=== PATIENT | female | born 1940 | race Caucasian/White ===

== ENCOUNTER → 2021-03-08 08:30 | Outpatient (CLI) | payer MEDICARE, SELFPAY ==
--- NOTE | ~2021-03-08 | CT_ITS ---
EXAMINATION: CT abdomen pelvis w con EXAM DATE: 03/08/2021 09:08 INDICATION: RLQ abdominal swelling, mass and lump. TECHNIQUE: Spiral CT of the abdomen and pelvis was performed following intravenous injection of 100 m L Omnipaque 350. Axial, coronal and sagittal images of the abdomen and pelvis were reviewed. The do se-length product (DLP) for this examination was 357.67 mGy-cm. The exposure was tailored according to patient size (auto mA exposure control), and iterative reconstruction (ASIR) was used as additiona l dose reduction technique. There is no prior study for comparison. FINDINGS: The liver, spleen, adrenal glands and pancreas are unremarkable. Gallbladder is unremarkab le. No biliary obstruction. Portal and splenic veins are patent. Kidneys enhance symmetrically. T here is no hydronephrosis. There is a 3 cm right renal cyst. Focal hypodense region in the uterus me asuring 3.7 cm appears to be in the anterior myometrium displacing the endometrium anteriorly, making this most likely fibroid. The bladder is unremarkable. There is no retroperitoneal or pelvic lymph adenopathy. There is mild scattered arteriosclerotic disease. The appendix is normal. The stomach and small bowel are unremarkable. There is moderate scattered co lonic diverticulosis. There is no adjacent inflammatory change to suggest diverticulitis. No free i ntraperitoneal gas. The heart is normal in size. There are no pericardial or pleural effusions. T he lung bases are unremarkable. There are no osteoblastic or osteolytic lesions identified. Mild lum bar levoscoliosis. IMPRESSION: Uterine mass appears to displace endometrium, probably fibroid. Moderate colonic divertic ulosis. Reviewed, dictated and finalized at location B. IMPRESSION: Uterine mass appears to displace endometrium, probably fibroid. Mod erate colonic diverticulosis.
[2021-03-08 08:55] LABS: Estimated Glomerular Filt Rate > 60
== END ==
PROVIDERS: PCP Family Medicine; Visit Provider Family Medicine
DX: R10.30 Lower abdominal pain, unspecified (principal); N28.1 Cyst of kidney, acquired
CPT/HCPCS: 74177; Q9967

== ENCOUNTER 2021-09-25 13:21 | Outpatient (CLI) | payer MEDICARE, SELFPAY ==
--- NOTE | ~2021-09-25 | XR_ITS ---
EXAM: XR hand RT min 3V HISTORY: Pain in right hand . COMPARISON: None available. FINDINGS: Severely decreased mineralization. No fracture or dislocation. No lytic or blastic lesion. Erosive joint space narrowing in the interphalangeal joint of the thumb and the DIPs, most severe at the thumb index and middle fingers. Other scattered mild nonerosive degenerative change. No perioste al change. IMPRESSION: No acute finding in the right hand. Erosive osteoarthritis. Reviewed, dictated and finalized at location K.
== END 2021-09-25 13:22 | disposition home or self-care (01) ==
PROVIDERS: PCP Family Medicine; Visit Provider Orthopaedic Surgery
DX: M15.4 Erosive (osteo)arthritis (principal)
CPT/HCPCS: 73130

== ENCOUNTER 2021-10-09 08:44 | Emergency (ER) | payer MEDICARE, SELFPAY ==
--- NOTE | ~2021-10-09 | CT_ITS ---
EXAMINATION: CT cervical spine wo con DATE: 10/09/2021 09:09 INDICATION: Neck pain and stiffness for 3 days. History of spinal stenosis, surgical spinal fusion TECHNIQUE: Computed tomography (CT) of the cervical spine was performed without intravenous contrast. Automated exposure control and iterative reconstruction technique were employed. Exam dose: 174.00 mGy-cm total exam DLP. COMPARISON: None FINDINGS: There is reversal cervical curvature. There is 2 mm anterolisthesis at C3-4 and 1.6 mm anterolisthesis at C4-5. Status post anterior cervical spine surgical fusion at C5-6. Moderately severe degenerative disc disease at C6-7 and severe degenerative disc disease at C7-T1. There is disc disease and minimal anterolisthesis at T2-3. There is prominent degenerative change of the apophyseal joints, particularly in the upper and mid ce rvical spine. There is prominent uncovertebral joint spurring at C6-7 and C7-T1. C1 and C2 are normally aligned and the odontoid process is intact. No fracture or dislocation or lock ed facet or prevertebral soft tissue swelling is detected. IMPRESSION: Reversal of cervical curvature Status post surgical fusion at C5-C6 2 mm anterolisthesis at C3-4 1.6 mm anterolisthesis at C4-5 Minimal anterolisthesis at T2-3 Moderately severe degenerative disc disease at C6-7 and severe degenerative disc disease at C7-T1 Prominent uncovertebral joint spurring at C6-7 and C7-T1 Reviewed, dictated and finalized at Location A. Reviewed, dictated and finalized at location A. IMPRESSION: Reversal of cervical curvature Status post surgical fusion at C5-C6 2 mm anterolisthesis at C3-4 1.6 mm anterolisthesis at C4-5 Minimal anterolisthesis at T2-3 Moderately severe degenerative disc disease at C6-7 and severe degenerative dis c disease at C7-T1 Prominent uncovertebral joint spurring at C6-7 and C7-T1
[2021-10-09 08:48] VITALS: BP 182/81; PULSE 92; RESP 18; TEMP 36.9; O2SAT 98
--- NOTE | 2021-10-09 09:37 | ED.NECK ---
HPI - Neck Pain/Injury General Chief Complaint: Neck Pain/Injury Stated Complaint: neck pain Time Seen by Provider: 10/09/21 08:52 History of Present Illness HPI Narrative: 80-year-old female with history of cervical spine issues and surgery presents here after she woke up 3 days ago with a stiff neck, she states that it was mostly worse on the left side, but now is kind of in the center, her when she tries to turn her neck, no fevers or chills, she has been using pain medicine and ice and hot packs at home with some improvement but she was worried it may be something to do with her spine. No focal numbness or weakness. No radiation of her pain. Related Data Allergies Allergy/AdvReac Type Severity Reaction Status Date / Time iodine Allergy Unknown HIVES Verified 09/25/21 13:39 Review of Systems Review of Systems: CONST: No fever. 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 EYES: EOMI, conjunctiva normal NECK: Some tenderness palpation around the left paraspinal region, full range of motion LUNGS: Nonlabored breathing. HEART: [Regular rate and rhythm] EXT: Normal range of motion SKIN: [No rashes or lesions.] NEURO: Alert and oriented x 3, Good strength upper and lower extremities with normal perfusion, no swelling of any extremity PSYCH: Normal affect Course Vital Signs Vital signs: Vital Signs Temperature 98.5 F 10/09/21 08:48 Pulse Rate 92 05/30/22 08:48 Respiratory Rate 18 10/09/21 08:48 Blood Pressure 182/81 H 10/09/21 08:48 Pulse Oximetry 98 10/09/21 08:48 Temperature 98.5 F 10/09/21 08:48 Pulse Rate 78 10/09/21 09:55 Respiratory Rate 18 10/09/21 09:55 Blood Pressure 157/78 H 10/09/21 09:55 Pulse Oximetry 98 10/09/21 09:55 MDM - Neck Pain/Injury MDM Narrative Medical decision making narrative: 80-year-old female presenting with left-sided neck pain of several days on waking, vital signs stable, exam shows mild tenderness paraspinal, I suspect most likely musculoskeletal pain, very unlikely DVT without swelling, very unlikely spine fracture or spinal cord issue without any focal neurologic deficits, CT obtained here and is negative for any acute abnormality, patient is reassured and stable for discharge home and asked to follow-up with her doctor. Return precautions provided. Discharge Plan Discharge Clinical Impression: Neck muscle strain Patient Disposition: Home, Self-Care Condition: Stable Instructions: Antibiotic Form, Neck Pain (ED) Additional Instructions: No fracture on your CT scan today, please follow up with your doctor and you can continue using naproxen and tylenol at home as needed for pain; I have also sent a prescription for a muscle relaxant if you want to try that. You can always come back if you start noticing any new numbness or tingling or weakness anywhere. Prescriptions: New methocarbamol 750 mg tablet 750 mg PO TID Qty: 20 0RF Follow-up/Referrals: Tom Jason MD [Primary
[2021-10-09 09:55] VITALS: BP 157/78; PULSE 78; RESP 18; O2SAT 98
== END 2021-10-09 09:56 | disposition home or self-care (01) ==
PROVIDERS: Emergency Provider Emergency Medicine; PCP Family Medicine
DX: S16.1XXA Strain of muscle, fascia and tendon at neck level, initial encounter (principal); E78.2 Mixed hyperlipidemia; X58.XXXA Exposure to other specified factors, initial encounter
CPT/HCPCS: 72125; 99284

== ENCOUNTER 2021-11-27 08:56 | Outpatient (CLI) | payer MEDICARE, SELFPAY ==
[2021-11-27 09:24] LABS: Alanine Aminotransferase 18 U/L (6-35); Albumin Level 4.2 g/dL (3.5-5.1); Alkaline Phosphatase 77 U/L (38-126); Anion Gap 6 mmol/L (8-16); Aspartate Amino Transferase 24 U/L (14-36); Bilirubin,Total 0.4 mg/dL (0.2-1.3); Blood Urea Nitrogen 17 mg/dL (7-17); Calcium 8.9 mg/dL (8.4-10.2); Carbon Dioxide 28 mmol/L (22-30); Chloride 106 mmol/L (98-107); Cholesterol 232 mg/dL (0-200); Estimated Glomerular Filt Rate > 60; Glucose 104 mg/dL (65-110); HDL Direct 56 mg/dL; Potassium 3.8 mmol/L (3.4-5.0); Sodium 140 mmol/L (137-145); Triglycerides 96 mg/dL (<150)
[2021-11-27 09:28] LABS: Hematocrit 40.5 % (37.0-47.0); Hemoglobin 13.8 g/dL (12.0-15.0); Mean Corpuscular HGB Conc 34.1 g/dl (32-36); Mean Corpuscular Hemoglobin 30.3 pg (26-34); Mean Platelet Volume 9.6 fl (7.4-10.4); Platelet Count Result 284 k/mm3 (150-375); Red Blood Count 4.55 M/mm3 (4.2-5.4); Red Cell Distribution Width 13.2 % (11.5-14.5); White Blood Count 5.5 K/mm3 (4.5-10.0)
[2021-11-27 09:35] LABS: LDL Cholesterol Direct 122 mg/dL
[2021-11-27 10:28] LABS: Vitamin D 25 Hydroxy 43.4 ng/mL
== END 2021-11-27 08:57 | disposition home or self-care (01) ==
PROVIDERS: PCP Family Medicine; Visit Provider Nurse Practitioner Family
DX: E55.9 Vitamin D deficiency, unspecified (principal); E78.2 Mixed hyperlipidemia
CPT/HCPCS: 36415; 80053; 80061; 82306; 84443; 85027

== ENCOUNTER → 2022-01-16 08:45 | Outpatient (CLI) | payer MEDICARE, SELFPAY ==
--- NOTE | ~2022-01-16 | CT_ITS ---
EXAMINATION: CT pelvis wo con DATE: 01/16/2022 09:30 INDICATION: Right hip pain. TECHNIQUE: Computed tomography (CT) of the pelvis was performed without intravenous contrast. Automat ed exposure control and iterative reconstruction technique were employed. The dose-length product was 339.81 mGy-cm. COMPARISON: CT abdomen and pelvis 03/08/2021 FINDINGS: There are no dilated loops of bowel. There is diverticulosis of the colon without evidence of diverticulitis. The appendix is normal. There are no pathologically enlarged lymph nodes. There is no free intraperitoneal fluid. There is severe lumbar spondylosis. There is an old healed fracture o f right anterior superior iliac spine. There is mild osteoarthritis of the hips. There is mild osteoa rthritis of the sacroiliac joints. IMPRESSION: 1. Polyarticular osteoarthritis. 2. Severe lumbar spondylosis. Reviewed, dictated and finalized at location A.
== END ==
PROVIDERS: PCP Family Medicine; Visit Provider Nurse Practitioner Family
DX: M25.551 Pain in right hip (principal); M16.11 Unilateral primary osteoarthritis, right hip; M47.816 Spondylosis without myelopathy or radiculopathy, lumbar region
CPT/HCPCS: 72192

== ENCOUNTER → 2022-02-05 10:23 | Outpatient (CLI) | payer MEDICARE, SELFPAY ==
--- NOTE | ~2022-02-05 | MR_ITS ---
EXAMINATION: MR lumbar spine wo con DATE: 02/05/2022 10:51 INDICATION: Low back pain. TECHNIQUE: Magnetic resonance imaging (MRI) of the lumbar spine was performed without intravenous con trast. Sequences included sagittal T2-weighted FSE, sagittal T2-weighted FS FSE, sagittal T1-weighted FSE, and axial T2-weighted FSE. COMPARISON: None FINDINGS: There is 9 degrees levocurvature of lumbar spine. There is 5 mm anterolisthesis of L4 on L5 . Vertebral body heights are normal. There is mildly decreased disc height from L1-L2 through L4-L5 a nd severely decreased disc height at L5-S1. The distal spinal cord signal intensity is normal. The co nus medullaris is at L1. There are cysts in the kidneys measuring up to 3.3 cm on the right. The foll owing disc levels are specifically discussed: L1-L2: The disc is bulging. There is mild bilateral facet joint osteoarthritis. There is no neural fo raminal stenosis. There is mild central canal stenosis. L2-L3: The disc is bulging. There is severe right and mild left facet joint osteoarthritis. There is mild bilateral neural foraminal stenosis. There is mild central canal stenosis. L3-L4: The disc is bulging and has an annular fissure. There is severe bilateral facet joint osteoart hritis. There is mild bilateral neural foraminal stenosis. There is mild central canal stenosis. L4-L5: The disc is bulging and has an annular fissure. There is severe bilateral facet joint osteoart hritis. There is moderate right and mild left neural foraminal stenosis. There is severe central carlos l stenosis. L5-S1: The disc is bulging and has an annular fissure. There is severe bilateral facet joint osteoart hritis. There is mild bilateral neural foraminal stenosis. There is mild central canal stenosis. IMPRESSION: 1. Severe lumbar spondylosis. Reviewed, dictated and finalized at location A.
== END ==
PROVIDERS: PCP Family Medicine; Visit Provider Nurse Practitioner Family
DX: M47.817 Spondylosis without myelopathy or radiculopathy, lumbosacral region (principal); M48.07 Spinal stenosis, lumbosacral region
CPT/HCPCS: 72148

== ENCOUNTER 2022-09-28 17:22 | Emergency (ER) | payer MEDICARE, SELFPAY ==
--- NOTE | ~2022-09-28 | US_ITS ---
EXAMINATION: US venous doppler LE RT DATE: 09/28/2022 21:04 INDICATION: Right lower limb pain TECHNIQUE: Grayscale ultrasound images without and with compression and Doppler ultrasound images of the right lower extremity veins were obtained. COMPARISON: None. FINDINGS: The visualized portions of right common femoral vein, profunda (deep) femoral vein, femoral vein, pop liteal vein, peroneal trunk, posterior tibial veins, peroneal veins, gastrocnemius vein and greater s aphenous vein outflow are patent. IMPRESSION: 1. No deep venous thrombosis in the right lower limb. Reviewed, dictated and finalized at location A.
[2022-09-28 17:29] VITALS: BP 198/100; PULSE 85; RESP 20; TEMP 36.3; O2SAT 98
--- NOTE | 2022-09-28 18:49 | PC.NURSE ---
Patient off unit to US.
--- NOTE | 2022-09-28 19:35 | PC.NURSE ---
1929-PATIENT EXPRESSED CONCERN OVER WAIT TIME FOR ULTRASOUND. PATIENT STATES SHE HAS BEEN WAITING IN EXCESS OF TWO HOURS FOR ULTRASOUND. THIS RN WALKED TO USN, KNOCKED ON THE DOOR WITH NO ANSWER. SPOKE TO STUDENT LIFE COORDINATOR WHO SPOKE TO TRAINING PROGRAM DEVELOPER IN PRESENCE OF THIS NURSE. USN TECH STATES RECEIVED SIX USN ORDERS IN MATTER OF TWO HOURS AND IS NOW IN MINIMUM OF 30 MINUTE PROCEDURE. UNABLE TO GIVE ESTIMATED TIME FRAME FOR PATIENT'S USN. ADVISED PROVIDER AND CHARGE NURSE OF TIME FRAME. SPOKE TO PATIENT AT LENGTH REGARDING WAIT TIME FOR USN. PATIENT VOICES UNDERSTANDING AND IS CURRENTLY AGREEABLE TO WAIT FOR TEST.
--- NOTE | 2022-09-28 21:28 | ED.EXTPRO ---
HPI - Extremity Problem General Chief complaint: Extremity Problem,Nontraumatic Stated complaint: right leg pain, sent for doppler Time Seen by Provider: 09/28/22 17:34 Source: patient Mode of arrival: ambulatory Limitations: no limitations History of Present Illness HPI Narrative: 81-year-old here with complaints of right knee and leg pain. Patient states that she was on a riding lawnmower stretched her leg for several hours soon after she got out she started having pain in the right knee area had an x-ray done which showed mild effusion however since this morning she has been having pain in her calf and posterior aspect of the knee. She states that she went to urgent care and they referred her to the ER for possible DVT. Patient had no previous history of any venous thrombosis. Related Data Home Medications Medication Instructions Recorded Confirmed No Home Medications 12/12/21 09/25/22 Allergies Allergy/AdvReac Type Severity Reaction Status Date / Time iodine Allergy Unknown HIVES Verified 09/25/22 10:16 Review of Systems Review of Systems: All systems reviewed & are unremarkable except as noted in HPI and below Constitutional: Constitutional: Reports no additional constitutional complaints Eyes: Eyes: Reports no additional eye complaints ENT: Reports system reviewed and no additional complaints, except as documented Cardiovascular: Cardiovascular: Reports no additional cardiovascular complaints Respiratory: Respiratory: Reports no additional respiratory complaints Gastrointestinal: Gastrointestinal: Reports no additional gastrointestinal complaints Musculoskeletal: Musculoskeletal: Reports as per HPI Neurologic: Reports system reviewed and no additional complaints, except as documented [facility] Past Medical History Medical History Acute right hip pain Arthritis BMI 24.0-24.9, adult Bulging lumbar disc CMC arthritis, thumb, 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 Degenerative arthritis of thumb Diarrhea Lateral epicondylitis, left elbow Lumbar spondylosis Mixed hyperlipidemia Osteoarthritis of hands, bilateral Osteoarthritis, hand Osteochondroma of pelvis Preventative health care RLQ abdominal mass Trigger finger, right ring finger Uterine fibroid Family History Family History Mother Family history of malignant neoplasm of uterus Patient's mother is Other Family history of arthritis Social History Social History Smoking status: Never smoker Second hand tobacco smoke exposure: No Alcohol intake: current Exam Narrative: GENERAL: Well-appearing, well-nourished, and in no acute distress. HEAD: Normocephalic, atraumatic. EYES: PERRLA and EOMI.. NECK: Supple. CHEST: Clear to auscultation. No respiratory distress. HEART: Regular rate and rhythm. No murmur heard. Normal peripheral pulses.. EXTREMITIES: Normal range of motion. No edema. Examination of the right leg shows no evidence of. Edema or calf tenderness SKIN: Warm, dry, no rash. NEURO: No focal deficits. Alert and oriented x3. PSYCH: Normal mood and affect. Course Vital Signs Vital signs: Vital Signs Temperature 36.3 C L 09/28/22 17:29 Pulse Rate 85 09/28/22 17:29 Respiratory Rate 20 09/28/22 17:29 Blood Pressure 198/100 H 09/28/22 17:29 Pulse Oximetry 98 09/28/22 17:29 Oxygen Delivery Room Air 09/28/22 17:29 Temperature 36.3 C L 09/28/22 17:29 Pulse Rate 85 09/28/22 17:29 Respiratory Rate 20 09/28/22 17:29 Blood Pressure 198/100 H 09/28/22 17:29 Pulse Oximetry 98 09/28/22 17:29 Oxygen Delivery Room Air 09/28/22 17:29 MDM - Extremity (Nontraumatic) Differential Diagnosis Differential diagnosis: Likely deep vein thrombosis of lower extremity and oth
== END 2022-09-28 21:34 | disposition home or self-care (01) ==
PROVIDERS: Emergency Provider Family Medicine; PCP Family Medicine
DX: M79.661 Pain in right lower leg (principal); E78.2 Mixed hyperlipidemia; M19.042 Primary osteoarthritis, left hand; M19.041 Primary osteoarthritis, right hand
CPT/HCPCS: 93971; 99284

== ENCOUNTER 2022-12-03 08:50 | Outpatient (CLI) | payer MEDICARE, SELFPAY ==
[2022-12-03 20:09] LABS: Basophils Absolute Auto 0.1 K/mm3 (0.0-0.1); Basophils Percent Auto 1.7 % (0.2-1.2); Eosinophils Absolute Auto 0.4 K/mm3 (0-0.3); Eosinophils Percent Auto 7.4 % (0-4.4); Hemoglobin 13.1 g/dL (12.0-15.0); Immature Granulocyte Absolute 0.01 K/mm3 (0.00-0.031); Immature Granulocyte Percent A 0.2 % (0-0.5); Lymphocytes Absolute Auto 2.11 K/mm3 (0.9-3.2); Lymphocytes Percent Auto 38.9 % (18.3-44.2); Mean Corpuscular Hemoglobin 29.8 pg (26-34); Mean Corpuscular Volume 93.2 fl (80-100); Mean Platelet Volume 10.5 fl (7.4-10.4); Monocytes Absolute Auto 0.7 K/mm3 (0.1-0.6); Monocytes Percent Auto 13.3 % (2.6-8.5); Neutrophils Absolute Auto 2.1 K/mm3 (1.3-6.7); Neutrophils Percent Auto 38.5 % (45.5-73.1); Platelet Count Result 290 k/mm3 (150-375); Red Cell Distribution Width 13.3 % (11.5-14.5); White Blood Count 5.4 K/mm3 (4.5-10.0)
[2022-12-03 21:09] LABS: Alanine Aminotransferase 20 U/L (6-35); Albumin Level 4.3 g/dL (3.5-5.1); Alkaline Phosphatase 76 U/L (38-126); Anion Gap 6 mmol/L (8-16); Aspartate Amino Transferase 31 U/L (14-36); Bilirubin,Total 0.4 mg/dL (0.2-1.3); Blood Urea Nitrogen 13 mg/dL (7-17); Calcium 9.3 mg/dL (8.4-10.2); Carbon Dioxide 30 mmol/L (22-30); Chloride 104 mmol/L (98-107); Cholesterol 251 mg/dL (0-200); Estimated Glomerular Filt Rate > 60; Glucose 84 mg/dL (65-110); HDL Direct 64 mg/dL; Potassium 4.9 mmol/L (3.4-5.0); Sodium 140 mmol/L (137-145); Triglycerides 71 mg/dL (<150)
[2022-12-03 21:19] LABS: LDL Cholesterol Direct 134 mg/dL
[2022-12-03 21:46] LABS: Vitamin D 25 Hydroxy 40.5 ng/mL
== END 2022-12-03 08:51 | disposition home or self-care (01) ==
LOC: ANHGOSHLAB 08:54
PROVIDERS: PCP Family Medicine; Visit Provider Family Medicine
DX: Z13.220 Encounter for screening for lipoid disorders (principal); E55.9 Vitamin D deficiency, unspecified; K92.9 Disease of digestive system, unspecified; E78.2 Mixed hyperlipidemia; R19.7 Diarrhea, unspecified
CPT/HCPCS: 36415; 80048; 80061; 80076; 82306; 84443; 85025

== ENCOUNTER 2023-07-11 09:49 | Outpatient (CLI) | payer MEDICARE, SELFPAY ==
--- NOTE | ~2023-07-11 | XR_ITS ---
Left Knee Technique: AP, lateral, and sunrise views were obtained. Clinical History: Pain Findings: No fracture or dislocation is seen. Osseous alignment is anatomic. Joint spaces are preserv ed without degenerative or erosive change. Soft tissues are unremarkable. No joint effusion is seen. Impression: Unremarkable left knee radiographs. Reviewed, dictated and finalized at location . DEVELOPER Impression: Unremarkable left knee radiographs.
== END 2023-07-11 09:50 | disposition home or self-care (01) ==
LOC: ANHLAB 09:53
PROVIDERS: PCP Family Medicine; Visit Provider Orthopaedic Surgery
DX: M25.562 Pain in left knee (principal)
CPT/HCPCS: 73564

== ENCOUNTER 2023-08-05 09:30 | Outpatient (CLI) | payer MEDICARE, SELFPAY ==
--- NOTE | ~2023-08-05 | XR_ITS ---
XR shoulder RT min 2V 08/05/2023 09:53 Indication: Right shoulder pain Procedure: 4 views right shoulder Comparison: No prior studies for comparison. Findings: No fracture, subluxation or dislocation. There is polyarticular osteoarthritis. No signific ant soft tissue abnormality. Osteopenia. No soft tissue abnormality. Impression: 1: Mild polyarticular osteoarthritis. Reviewed, dictated and finalized at location B. Impression: 1: Mild polyarticular osteoarthritis.
== END 2023-08-05 09:31 | disposition home or self-care (01) ==
LOC: ANHIMG 09:36
PROVIDERS: PCP Family Medicine; Visit Provider Orthopaedic Surgery
DX: M25.511 Pain in right shoulder (principal); M19.011 Primary osteoarthritis, right shoulder
CPT/HCPCS: 73030

== ENCOUNTER 2023-08-29 09:36 | Outpatient (CLI) | payer MEDICARE, SELFPAY ==
--- NOTE | ~2023-08-29 | XR_ITS ---
Right Knee Technique: AP, lateral, and sunrise views were obtained. Clinical History: Pain Findings: No fracture or dislocation is seen. There is medial compartment narrowing and medial joint line spurring. There is additional spurring at the intercondylar notch. There is minimal patellar and lateral joint line spurring. Probable 8 mm loose body posteriorly. Small joint effusion is seen. Impression: Tricompartmental degenerative change, worse in the medial compartment than the lateral and patellofem oral compartments. Probable 8 mm posterior loose body and small joint effusion. Reviewed, dictated and finalized at location . Impression: Tricompartmental degenerative change, worse in the medial compartment than the lateral and patellofemoral compartments. Probable 8 mm posterior loose body and small joint effusion.
== END 2023-08-29 09:37 | disposition home or self-care (01) ==
LOC: ANHIMG 09:40
PROVIDERS: PCP Family Medicine; Visit Provider Orthopaedic Surgery
DX: M23.41 Loose body in knee, right knee (principal); M25.461 Effusion, right knee; M25.561 Pain in right knee
CPT/HCPCS: 73564

== ENCOUNTER 2023-09-04 08:47 | Outpatient (CLI) | payer MEDICARE, SELFPAY ==
--- NOTE | ~2023-09-04 | DEXA_ITS ---
Bone Density Report Name: GABO MOTA Age: 82 Sex: Female Ethnicity: White Date of : 1940 Indication: osteopenia; prior fracture; postmenopausal Referring Provider: Eveline Watson Study: Bone densitometry was performed. Exam Date: September 04, 2023 Accession number: [id number] Bone Density: Region BMD T-score Z-score Classification AP Spine (L1-L4) 1.115 0.6 3.5 Normal Femoral Neck (Left) 0.702 -1.3 1.1 Osteopenia Total Hip (Left) 0.796 -1.2 1.1 Osteopenia Femoral Neck (Right) 0.601 -2.2 0.2 Osteopenia Total Hip (Right) 0.751 -1.6 0.7 Osteopenia Total Hip Mean 0.774 -1.4 0.9 Osteopenia World Health Organization criteria for BMD impression classify patients as: Normal (T-score at or above -1.0), Osteopenia (T-score between -1.0 and -2.5), or Osteoporosis (T-score at or below -2.5). 10-year Fracture Risk(1): Major Osteoporotic Fracture 23% Hip Fracture 7.1% Reported Risk Factors: [place] (), Neck BMD=0.601, BMI=24.5, previous fracture (1) FRAX(R) Version 3.08. Fracture probability calculated for an untreated patient. Fracture probability may be lower if the patient has received treatment. Previous Exams: Region Exam Age BMD T-score BMD Change BMD Change Date g/cm2 vs Baseline vs Previous AP Spine(L1-L4) 09/04/2023 82 1.115 0.6 0.102* 0.001 03/27/2018 77 1.114 0.6 0.101* 0.007 03/19/2016 75 1.107 0.5 0.094* -0.002 11/02/2013 73 1.109 0.6 0.096* 0.003 10/30/2011 71 1.106 0.5 0.093* 0.053* 10/24/2009 69 1.054 0.1 0.040* 0.040* 10/24/2007 67 1.013 -0.3 0.000 0.000 10/22/2005 65 1.013 -0.3 Total Hip(Left) 09/04/2023 82 0.796 -1.2 -0.023 -0.023 03/27/2018 77 0.818 -1.0 -0.001 -0.026 03/19/2016 75 0.844 -0.8 0.025 0.045* 11/02/2013 73 0.799 -1.2 -0.020 -0.006 10/30/2011 71 0.805 -1.1 -0.014 0.038* 10/24/2009 69 0.767 -1.4 -0.052* 0.005 10/24/2007 67 0.762 -1.5 -0.057* -0.057* 10/22/2005 65 0.819 -1.0 Total Hip(Right) 09/04/2023 82 0.751 -1.6 -0.069* -0.055* 03/27/2018 77 0.806 -1.1 -0.014 -0.014 03/19/2016 75 0.820 -1.0 0.000 -0.012 11/02/2013 73 0.832 -0.9 0.011 -0.038* 10/30/2011 71 0.870 -0.6 0.049* 0.047* 10/24/2009 69 0.823 -1.0 0.002 0.001 10/23
== END 2023-09-04 08:48 ==
LOC: MICIMG 08:50
PROVIDERS: PCP Nurse Practitioner Family; Visit Provider Nurse Practitioner Family
DX: M85.89 Other specified disorders of bone density and structure, multiple sites (principal); Z78.0 Asymptomatic menopausal state
CPT/HCPCS: 77080

== ENCOUNTER 2023-10-21 09:11 | Outpatient (CLI) | payer MEDICARE, SELFPAY ==
[2023-10-21 14:58] LABS: Hematocrit 40.6 % (37.0-47.0); Mean Corpuscular Hemoglobin 29.7 pg (26-34); Mean Corpuscular Volume 92.7 fl (80-100); Mean Platelet Volume 10.1 fl (7.4-10.4); Platelet Count Result 306 k/mm3 (150-375); Red Blood Count 4.38 M/mm3 (4.2-5.4); Red Cell Distribution Width 13.3 % (11.5-14.5); White Blood Count 5.1 K/mm3 (4.5-10.0)
[2023-10-21 16:18] LABS: Vitamin D 25 Hydroxy 46.8 ng/mL
[2023-10-21 17:07] LABS: Anion Gap 5 mmol/L (4-12); Blood Urea Nitrogen 13 mg/dL (7-17); Calcium 9.2 mg/dL (8.4-10.2); Carbon Dioxide 28 mmol/L (22-30); Chloride 104 mmol/L (98-107); Cholesterol 238 mg/dL (0-200); Estimated Glomerular Filt Rate > 60; Glucose 94 mg/dL (65-110); HDL Direct 63 mg/dL; Sodium 137 mmol/L (137-145); Triglycerides 91 mg/dL (<150)
[2023-10-21 17:18] LABS: LDL Cholesterol Direct 129 mg/dL
== END 2023-10-21 09:12 | disposition home or self-care (01) ==
LOC: ANHGOSHLAB 09:13
PROVIDERS: PCP Nurse Practitioner Family; Visit Provider Nurse Practitioner Family
DX: E78.2 Mixed hyperlipidemia (principal); E55.9 Vitamin D deficiency, unspecified
CPT/HCPCS: 36415; 80048; 80061; 82306; 84443; 85027

== ENCOUNTER 2023-12-12 14:26 | Outpatient (CLI) | payer MEDICARE, SELFPAY ==
--- NOTE | ~2023-12-12 | CT_ITS ---
EXAMINATION: CT LE RT wo con DATE: 12/12/2023 14:52 INDICATION: Unilateral primary osteoarthritis, right knee. Preoperative planning. TECHNIQUE: Computed tomography (CT) of the right lower limb was performed without intravenous contras t. Automated exposure control and iterative reconstruction technique were employed. The dose-length p roduct was 1740.43 mGy-cm. COMPARISON: Right knee radiographs 08/29/2023 FINDINGS: The right hip demonstrates moderate osteoarthritis. Right knee demonstrates severe osteoart hritis of the medial compartment and mild osteoarthritis of the lateral and patellofemoral compartmen ts. There is a moderate-sized knee joint effusion. IMPRESSION: 1. Severe right knee osteoarthritis. 2. Moderate-sized knee joint effusion. 3. Moderate right hip osteoarthritis. Reviewed, dictated and finalized at location A.
--- NOTE | 2023-12-12 14:56 | ECG_ITS ---
Test Date: 2023-12-12 15:00:49 Measurements Intervals [place] Rate: 61 P: 53 VA: 167 QRS: 14 QRSD: 84 T: 43 QT: 402 QTc: 407 Interpretive Statements SINUS RHYTHM NORMAL ELECTROCARDIOGRAM No previous ECG available for comparison Electronically Signed On 12-13-2023 11:06:36 CDT by Efraín White M.D.
== END 2023-12-12 14:27 | disposition home or self-care (01) ==
PROVIDERS: PCP Nurse Practitioner Family; Visit Provider Orthopaedic Surgery
DX: M17.11 Unilateral primary osteoarthritis, right knee (principal); M25.461 Effusion, right knee; M16.11 Unilateral primary osteoarthritis, right hip
CPT/HCPCS: 73700; 93005

== ENCOUNTER 2023-12-13 09:34 | Outpatient (CLI) | payer MEDICARE, SELFPAY ==
[2023-12-13 13:04] LABS: Hematocrit 42.4 % (37.0-47.0); Hemoglobin 13.6 g/dL (12.0-15.0)
[2023-12-13 13:22] LABS: Albumin Level 4.3 g/dL (3.5-5.1); Estimated Glomerular Filt Rate > 60; Glucose 101 mg/dL (65-110)
== END 2023-12-13 09:35 | disposition home or self-care (01) ==
LOC: ANHGOSHLAB 09:36
PROVIDERS: PCP Nurse Practitioner Family; Visit Provider Orthopaedic Surgery
DX: Z01.818 Encounter for other preprocedural examination (principal); E78.2 Mixed hyperlipidemia; M17.11 Unilateral primary osteoarthritis, right knee; E55.9 Vitamin D deficiency, unspecified
CPT/HCPCS: 36415; 82040; 82565; 82947; 85014; 85018

== ENCOUNTER 2024-02-19 11:44 | Outpatient (CLI) | payer MEDICARE, SELFPAY ==
[2024-02-19 12:58] LABS: Basophils Absolute Auto 0.1 K/mm3 (0.0-0.1); Basophils Percent Auto 1.8 % (0.2-1.2); Eosinophils Absolute Auto 0.3 K/mm3 (0-0.3); Eosinophils Percent Auto 4.2 % (0-4.4); Hematocrit 40.6 % (37.0-47.0); Hemoglobin 13.4 g/dL (12.0-15.0); Immature Granulocyte Absolute 0.02 K/mm3 (0.00-0.031); Immature Granulocyte Percent A 0.3 % (0-0.5); Lymphocytes Absolute Auto 1.89 K/mm3 (0.9-3.2); Lymphocytes Percent Auto 30.3 % (18.3-44.2); Mean Corpuscular Hemoglobin 30.2 pg (26-34); Mean Corpuscular Volume 91.6 fl (80-100); Mean Platelet Volume 9.7 fl (7.4-10.4); Monocytes Absolute Auto 0.9 K/mm3 (0.1-0.6); Monocytes Percent Auto 14.1 % (2.6-8.5); Neutrophils Absolute Auto 3.1 K/mm3 (1.3-6.7); Neutrophils Percent Auto 49.3 % (45.5-73.1); Platelet Count Result 268 k/mm3 (150-375); Red Blood Count 4.43 M/mm3 (4.2-5.4); Red Cell Distribution Width 12.3 % (11.5-14.5); White Blood Count 6.2 K/mm3 (4.5-10.0)
[2024-02-19 13:08] LABS: Hemoglobin A1C 5.9 % (<5.7)
[2024-02-19 13:10] LABS: Albumin Level 4.5 g/dL (3.5-5.1); Estimated Glomerular Filt Rate > 60; Glucose 100 mg/dL (65-110)
[2024-02-19 13:16] LABS: Urine Cotinine NEGATIVE
[2024-02-19 14:22] LABS: MRSA (PCR) NOT DETECTED (NOT DETECTE)
== END 2024-02-19 11:45 | disposition home or self-care (01) ==
LOC: ANHSURGERY 11:48
PROVIDERS: PCP Nurse Practitioner Family; Visit Provider Orthopaedic Surgery
DX: Z01.812 Encounter for preprocedural laboratory examination (principal); M17.11 Unilateral primary osteoarthritis, right knee
CPT/HCPCS: 80307; 82040; 82565; 82947; 83036; 85025; 87641

== ENCOUNTER 2024-03-16 14:05 | Outpatient (CLI) | payer MEDICARE, SELFPAY ==
--- NOTE | ~2024-03-16 | MR_ITS ---
MRI of the right shoulder Technique: Axial proton-density fat-sat images, coronal proton density fat-sat and T2 fat-sat images, and sagittal T1-weighted and T2 fat-sat images were acquired. Clinical History: Pain Findings: There is moderate AC joint degenerative change with bony productive change of the distal cl avicle in particular. Small amount of fluid present in the joint space. Coracoclavicular, coracoacrom ial, and coracohumeral ligaments are probably intact. There is a 1.0 x 1.0 cm area of full-thickness tearing at the anterior, distal supraspinatus tendon i nsertion. There is background thinning of the distal supraspinatus tendon in general. No definite inf raspinatus tear seen. Subscapularis tendon is intact with mild tendinosis. Tendon of long head of the biceps is intact. No definite labral tear seen. Inferior glenohumeral ligament is somewhat poorly defined, probable increased signal and thickening. There is minimal glenohumeral joint fluid, with associated fluid distention of the subacromial/subdel toid bursa. No degenerative change evident. No muscle atrophy evident. Impression: 1.0 x 1.0 cm area of full-thickness tear at the anterior, distal supraspinatus tendon insertion. Suspected adhesive capsulitis, with probable thickening, increased signal, and poor definition of the inferior glenohumeral ligament. Moderate AC joint degenerative change. Reviewed, dictated and finalized at [facility]. GING SUPERVISOR Impression: 1.0 x 1.0 cm area of full-thickness tear at the anterior, distal supraspinatus tendon insertion. Suspected adhesive capsulitis, with probable thickening, increased signal, and poor definition of the inferior glenohumeral ligament. Moderate AC joint degenerative change.
== END 2024-03-16 14:06 | disposition home or self-care (01) ==
LOC: GOSHIMG 14:07
PROVIDERS: PCP Nurse Practitioner Family; Visit Provider Physician Assistant Surgical
DX: S46.811A Strain of other muscles, fascia and tendons at shoulder and upper arm level, right arm, initial encounter (principal); X58.XXXA Exposure to other specified factors, initial encounter; M19.011 Primary osteoarthritis, right shoulder
CPT/HCPCS: 73221

== ENCOUNTER 2024-03-19 00:05 | Day surgery (SDC) | payer MEDICARE, SELFPAY ==
[2024-02-19 12:08] VITALS: BP 158/79; PULSE 67; RESP 16; TEMP 36.6; O2SAT 100; BMI 23.3
--- NOTE | 2024-02-19 12:27 | PC.NURSE ---
Report to the Outpatient Waiting Room, entrance under the green pavilion located off [facility], at time _06:00am___on date __03/19/24 . Planned Procedure Time: __07:30am .? Time changes happen often and if your time is changed the preop area will call you the afternoon before. - You and your visitor will be asked to self-screen and do not enter if you have any COVID symptoms. Please call surgeon if you need to reschedule. - A mask is optional within the hospital at this time. Patients may have clear liquids (water, carbonated beverages, clear teas, apple juice) until 3 hours prior to surgery with a maximum of 20 ounces. - No food from midnight until time of surgery and no smoking - Infants may have breast milk until 4 hours before surgery, formula 6 hours prior to surgery. - Children will be allowed to drink immediately following surgery.? If applicable, please bring a bottle or sippy cup to assist with drinking. Juice, water, soda, and popsicles are readily available.? For infants on formula, please bring formula the day of surgery.? Pacifiers are allowed. Take only the following medications with a SIP of water on the morning of surgery: None DO NOT STOP ANY OF YOUR OTHER PRESCRIPTION MEDICATIONS PRIOR TO SURGERY EXCEPT THE FOLLOWING Medications to discontinue per physician Meloxicam 7 days prior to surgery Date to take last dose 03/11/24 Hold all Vitamins and supplements 3 days prior- date to take last dose 03/15/24. Please no make-up, nail portuguese, hairspray, perfume, deodorant, or body powder the day of surgery.? No jewelry (including any body piercings) or valuables the day of surgery, leave them at home.? Please take a shower or bath the night before, or the morning of, surgery with an antibacterial soap.? Wear comfortable, loose fitting clothing. - Jewelry must be removed prior to entering the operating room.? Rings and piercings that are not removed may be cut off. - The hospital will not accept responsibility for valuables.? - Please leave all valuables, including medications, at home the day of surgery. If you are going home after surgery, a licensed light truck driver must drive you home.? - NO public transportation without another adult if you receive anesthesia. - We recommend that an adult stay with you for 24 hours following discharge. - We also recommend that you do not drive, make important decision, drink alcoholic beverages, or take any drugs that were not prescribed by your health care provider for at least 24 hours after your discharge time. For Pediatric surgeries, we recommend two adults accompany the child home. Follow any additional instructions given to you from your surgeon. Telephone instructions given to __patient and asked if any additional questions and then verbalized understanding. Patient advised to call surgeon office or pre surgery nurse liaison [phone] if any additional questions.
[2024-03-19] VITALS (13 sets, daily range): BP systolic 124–181; BP diastolic 53–92; PULSE 48–87; RESP 8–18; TEMP 35.6–36.4; O2SAT 91–100
--- NOTE | ~2024-03-19 | XR_ITS ---
EXAMINATION: [id number] DATE: 03/19/2024 09:53 LEARNING DISABLED TEACHER INDICATION: Right knee arthroplasty TECHNIQUE: 2 views right knee FINDINGS: There is a right total knee arthroplasty in expected position. Subcutaneous gas with fluid and air in the joint are consistent with recent surgery. No evidence of periprosthetic fracture. IMPRESSION: 1. Recent right total knee arthroplasty. Reviewed, dictated and finalized at location [] NING DISABLED TEACHER
--- NOTE | 2024-03-19 07:05 | WPDHPUPDATE1 ---
History and Physical Update Update Date/Time: 03/19/24 07:05 History and Physical has been reviewed, including an updated exam of the patient. There are NO changes in the patient's condition. Risks, benefits, and alternatives have been discussed and questions answered. Patient agrees to proceed with procedure.
[2024-03-19] MEDS: ACETAMINOPHEN 500 MG TABLET 1000 MG PO (07:15)
[2024-03-19] MEDS: TRANEXAMIC ACID 1,000MG/ISO100 1,000 MG/100 ML BAG 200 MG IVPB (07:15)
[2024-03-19] MEDS: LACTATED RINGERS 1,000 ML 30 ML IV CONT ×2 (07:15→09:19)
--- NOTE | 2024-03-19 07:18 | P.PNAN_ITS ---
Anes - Initial Pre Proc Eval Procedure: Operation Date: 03/19/24 07:30 Proposed Procedures p Right Custom Total Knee Arthroplasty - Magdiel Szymanski MD Date/Time: 03/19/24 07:18 Surgeon: Magdiel Szymanski MD Pre Op Diagnosis: primary oa right knee Patient Data Age: 83 Gender: F Height: 1.57 m Weight: 57.8 kg Last Vital Signs Temp 36.6 C 02/19/24 12:08 Pulse 67 02/19/24 12:08 Resp 16 02/19/24 12:08 BP 158/79 H 02/19/24 12:08 Pulse Ox 100 02/19/24 12:08 O2 Del Method Room Air 02/19/24 12:08 Allergies Allergy/AdvReac Type Severity Reaction Status Date / Time Latex, Natural Rubber Allergy Intermediate Itching Verified 03/18/24 08:12 lidocaine Allergy Intermediate Itching Verified 03/18/24 08:12 iodine Allergy Unknown HIVES Verified 03/18/24 08:12 Home Medications Medication Instructions Recorded Confirmed Type meloxicam 15 mg tablet 15 mg PO DAILY pain #90 tabs 10/17/23 03/18/24 Rx biotin 1,000 mcg chewable tablet 1,000 mcg PO DAILY 02/19/24 03/18/24 History calcium carbonate (Calcium 600) 600 mg PO DAILY 02/19/24 03/18/24 History multivitamin 1 cap PO DAILY 02/19/24 03/18/24 History omega-3 fatty acids-fish oil 360 1 cap PO DAILY 02/19/24 03/18/24 History mg-1,200 mg capsule (Fish Oil) red yeast rice 600 mg capsule 600 mg PO DAILY 02/19/24 03/18/24 History Patient hx anesthesia problems: none Family hx anesthesia problems: none Results Review: All pre-operative results and documents have been reviewed as part of the pre- operative evaluation. 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 Degenerative arthritis of thumb Diarrhea Lateral epicondylitis, left elbow Lumbar spondylosis Mixed hyperlipidemia Osteoarthritis of hands, bilateral Osteoarthritis, hand Osteochondroma of pelvis Preventative health care Right knee pain RLQ abdominal mass Trigger finger, right ring finger Uterine fibroid Family History Family History Mother Family history of malignant neoplasm of uterus Patient's mother is Other Family history of arthritis Social History Social History Smoking status: Never smoker Second hand tobacco smoke exposure: No Alcohol intake: never Substance use: never Substance use type: does not use Lack of Transportation: No Lack of Food: Never True Current Housing: I Have Housing Concerned About Future Housing: No Difficulty Paying Gas/Electric Bills: No Difficulty Paying for Meds: No Currently Unemployed: No Difficulty w/ Childcare or Family Care: No Living arrangements: with family Additional living arrangements comments: Spiritual care concerns: No Anes - Eval Final PreProcedure Day of Procedure 03/19/24 07:18 Patient weight: normal Heart: regular rate and rhythm Lungs: clear to auscultation Airway: Mallampati scale class II Neurological: alert and oriented Last oral intake: >/= 8 hours ASA classification: II Emergent: no Anesthetic plan: proceed Anesthesia type and monitoring: general LMA and standard monitoring Results Review: All pre-operative results and documents have been reviewed as part of the pre- operative evaluation. Informed Consent: The patient's anesthetic plan and its attendant risks and benefits were discussed with the patient/family/POA. Questions were solicited and answers provided to the satisfaction of the patient/family/POA.
[2024-03-19] MEDS: ceFAZolin 2 GM/D5W 50 ML 2 GM/50 ML BAG IVPB ×3 (07:25→23:56)
[2024-03-19] MEDS: SODIUM CHLORIDE 0.9% IV 37.7 ML, MORPHINE SULFATE INJ (*CRX) 2 MG, ROPivacaine HCL 1% 2... INFILTRATE (08:11)
[2024-03-19] MEDS: TRANEXAMIC ACID 1,000 MG/10 ML AMPUL 1000 MG IV PUSH (09:04)
--- NOTE | 2024-03-19 10:00 | P.OP_ITS ---
Procedure Note - Detailed Date of Procedure 03/19/24 Pre-op Diagnosis Right knee degenerative arthritis. Post-op Diagnosis Same Procedure Performed Total knee arthroplasty, right. Surgeon Magdiel Szymanski MD Hydraulic Chair Assembler Josee Moreno PA-C Anesthesia General and Regional (Subsartorial block.) Findings Custom implant optimal fit. Very small stature. Excellent bone quality. No releases required. Description of Procedure Preoperative antibiotics were given. The limb was prepped and draped in the usual sterile fashion with a well-padded tourniquet high on the thigh. The limb was exsanguinated and the tourniquet inflated to 300 mmHg. A longitudinal incision was created just medial to the patella. A trivector approach to the knee was performed. Arthrotomy was taken down through the joint capsule. No significant releases were initially taken. The femur was exposed and the F1 jig was applied. The coring tool was used to remove the cartilage for the F2 jig to sit flush with the bone. The jig was pinned and the distal cut carefully taken. Caliper measurements confirmed appropriate bony resections according to the preoperative templated plan. The F4 cutting jig for the femur was applied, at the standard rotation. The AP and anterior chamfer cuts were taken. The F5 jig was applied and the posterior chamfer cuts were taken. The tibia was prepared using the T1 jig, after removing cartilage for the jig contact points. Proper alignment was checked with the alignment teresa. The tibia was cut using the T1u guide. Gap balancing was performed. Gap measurements were taken and the knee was trialed. Excellent alignment and soft tissue balancing was confirmed. The posterior cruciate ligament was recessed along the proximal tibia. The patella was cut for resurfacing. Three lug holes were drilled. Meniscal remnants were removed. The trial components were assembled. Excellent range of motion and proper soft tissue balancing were confirmed throughout the full range of motion. Patellar tracking was excellent. The knee was copiously irrigated periodically throughout the procedure. The real implants were cemented into position. Excess cement was carefully removed. The wound was closed in layers with interrupted #1 Vicryl suture, 2-0 strata fix suture, 0 strata fix suture, 2-0 strata fix suture. Steri-Strips placed on the skin with the knee flexed. Sterile bulky dressing applied. The patient was brought to the recovery room in stable condition. There were no complications. Physician assistant infant toddler teacher, Josee Moreno PA-C, required for surgery; including patient positioning, draping, tissue retraction, maintaining instrument position, cement removal, wound closure, and dressing placement. Implants Conformis Custom total knee arthroplasty. Cemented. Cruciate retaining. 6A insert. 32 mm oval patella. Estimated Blood Loss 20 Tourniquet Time Total Tourniquet Time: 58 min Drains No Complications No immediate complications Condition Stable Disposition PACU [facility] Billing Surgery - Charge Forward: Surgery Billing
--- NOTE | 2024-03-19 10:42 | ADMGEN ---
This patient, Abbey Blanca, was admitted to [facility] Surg Room 311-01. Patient/family oriented to hospital policies and general routines including ID bracelet, bed and alarms, visiting hours, pain management, procedures, bathroom and other care routines, personal items, smoking policy, room service/diet, and visiting hours. Information on how to activate the Rapid Response Team has been discussed. Patient/Family are encouraged to report perceived risks to care and to ask questions if they do not understand what they are told or what they should do.
[2024-03-19] MEDS: ASPIRIN 81 MG ENTERIC TABLET PO ×2 (10:51→21:03)
[2024-03-19] MEDS: MELOXICAM 7.5 MG TABLET PO ×2 (10:51→17:03)
[2024-03-19] MEDS: FAMOTIDINE 20 MG TABLET PO ×2 (10:51→21:03)
[2024-03-19] MEDS: ACETAMINOPHEN 325 MG TABLET 650 MG PO ×3 (12:31→23:56)
[2024-03-19] MEDS: predniSONE 5 MG TABLET PO (17:03)
[2024-03-19] MEDS: SENNA/DOCUSATE SODIUM TABLET 2 TAB PO (17:03)
[2024-03-20] VITALS: BP 136/61; PULSE 70; RESP 14; TEMP 36.5; O2SAT 95
[2024-03-20 04:19] VITALS: BP 152/68; PULSE 71; RESP 14; TEMP 36.2; O2SAT 97
[2024-03-20] MEDS: ACETAMINOPHEN 325 MG TABLET 650 MG PO (05:55)
[2024-03-20] MEDS: ceFAZolin 2 GM/D5W 50 ML 2 GM/50 ML BAG IVPB (06:01)
[2024-03-20 07:10] LABS: Basophils Percent Auto 0.3 % (0.2-1.2); Eosinophils Percent Auto 0.1 % (0-4.4); Hematocrit 35.8 % (37.0-47.0); Hemoglobin 11.6 g/dL (12.0-15.0); Immature Granulocyte Absolute 0.09 K/mm3 (0.00-0.031); Immature Granulocyte Percent A 0.7 % (0-0.5); Lymphocytes Absolute Auto 2.03 K/mm3 (0.9-3.2); Lymphocytes Percent Auto 14.7 % (18.3-44.2); Mean Corpuscular HGB Conc 32.4 g/dl (32-36); Mean Corpuscular Hemoglobin 30.1 pg (26-34); Mean Platelet Volume 9.9 fl (7.4-10.4); Monocytes Absolute Auto 1.6 K/mm3 (0.1-0.6); Monocytes Percent Auto 11.5 % (2.6-8.5); Neutrophils Percent Auto 72.7 % (45.5-73.1); Platelet Count Result 269 k/mm3 (150-375); Red Blood Count 3.85 M/mm3 (4.2-5.4); Red Cell Distribution Width 12.7 % (11.5-14.5); White Blood Count 13.8 K/mm3 (4.5-10.0)
[2024-03-20 07:15] LABS: Anion Gap 8 mmol/L (4-12); Blood Urea Nitrogen 12 mg/dL (7-17); Calcium 9.1 mg/dL (8.4-10.2); Carbon Dioxide 27 mmol/L (22-30); Chloride 99 mmol/L (98-107); Estimated CRCL calculation 41 ml/min; Estimated Glomerular Filt Rate > 60; Glucose 90 mg/dL (65-110); Potassium 3.8 mmol/L (3.4-5.0); Sodium 134 mmol/L (137-145)
[2024-03-20] MEDS: SENNA/DOCUSATE SODIUM TABLET 2 TAB PO (07:44)
[2024-03-20] MEDS: ASPIRIN 81 MG ENTERIC TABLET PO (07:45)
[2024-03-20] MEDS: MELOXICAM 7.5 MG TABLET PO (07:45)
[2024-03-20] MEDS: FAMOTIDINE 20 MG TABLET PO (07:45)
--- NOTE | 2024-03-20 07:46 | P.PNAN_ITS ---
Anes - Prog Note Post-Op Date/Time: 03/20/24 07:46 Cardiovascular status: normal Respiratory status: normal Airway patency: baseline Mental status: baseline Post-Op hydration status: normal Vital Signs: Last Vital Signs Temp 36.2 C L 03/20/24 04:19 Pulse 71 03/20/24 04:19 Resp 14 03/20/24 04:19 BP 152/68 H 03/20/24 04:19 Pulse Ox 97 03/20/24 04:19 O2 Del Method Room Air 03/19/24 13:17 O2 Flow Rate 2 03/19/24 10:20 Pain Score (VAS): 0 I/O: Intake & Output 03/19/24 03/19/24 03/20/24 15:59 23:59 07:59 Intake Total 790 240 100 Balance 790 240 100 Laboratory Tests 03/20/24 06:28 03/20/24 06:28 03/20/24 06:28 WBC 13.8 H RBC 3.85 L Hgb 11.6 L Hct 35.8 L MCV 93.0 MCH 30.1 MCHC 32.4 RDW 12.7 Plt Count 269 MPV 9.9 Immature Gran % (Auto) 0.7 H Neut % (Auto) 72.7 Lymph % (Auto) 14.7 L [place] % (Auto) 11.5 H Eos % (Auto) 0.1 Baso % (Auto) 0.3 Lymph # (Auto) 2.03 [place] # (Auto) 1.6 H Eos # (Auto) 0.0 Baso # (Auto) 0.0 Abs Immat Gran (auto) 0.09 H Absolute Neuts (auto) 10.0 H Absolute Nucleated RBC 0.000 Nucleated RBC % 0.0 Sodium 134 L Potassium 3.8 Chloride 99 Carbon Dioxide 27 Anion Gap 8 BUN 12 Creatinine 0.70 Estim Creat Clear Calc 41 Estimated GFR > 60 Glucose 90 Calcium 9.1 Post-procedural complaints: none Patient Feedback: Patient satisfied with anesthetic care.
--- NOTE | 2024-03-20 07:52 | PM.DS ---
DS: Admitting Diagnosis Discharge Date 03/20/24 Admitting Diagnosis Knee arthritis. DS: Discharge Diagnosis Discharge Diagnosis (1) Status post total right knee replacement: Code(s): Z96.651 - Presence of right artificial knee joint Status: Acute Assessment and Plan: Postop day 1: Right total knee arthroplasty. Patient tolerated procedure well. No complications. Pain manageable with pain medication. No numbness or tingling. We had a lengthy discussion regarding postoperative wound care, limitations, expectations, and exercises. Patient shows good understanding. She has had initial physical therapy and is tolerating it well. DVT prophylaxis: 81 mg baby aspirin b.i.d. for 14 days. Pain medication: Percocet. Meloxicam. Prednisone. Patient has followup appointment with Dr. Szymanski in 3 weeks. DS: Summary Hospital Course Reason for hospitalization: Total knee arthroplasty Hospital Course: Patient tolerated procedure well. Has had initial PT/OT. Status at Discharge Functional status at discharge: uses cane/walker Overall status at discharge: patient is progressing back to baseline Time Spent with Patient Time attestation: Total time spent providing and/or coordinating discharge services: Exam Narrative: Overweight 83 y/o female. Resting comfortably in bed. Wearing compression socks bilaterally. Dressing intact with no drainage. Mild swelling. No ecchymosis. No erythema. No hematoma. Range of motion limited due to pain. Calf nontender. Neurologic status intact. No varicosities. Distal pulses palpable. DS: Data Data Completed and Pending Labs on day of discharge: Labs from last 24 hours 03/20/24 06:28 WBC 13.8 H RBC 3.85 L Hgb 11.6 L Hct 35.8 L MCV 93.0 MCH 30.1 MCHC 32.4 RDW 12.7 Plt Count 269 MPV 9.9 Immature Gran % (Auto) 0.7 H Neut % (Auto) 72.7 Lymph % (Auto) 14.7 L [place] % (Auto) 11.5 H Eos % (Auto) 0.1 Baso % (Auto) 0.3 Lymph # (Auto) 2.03 [place] # (Auto) 1.6 H Eos # (Auto) 0.0 Baso # (Auto) 0.0 Abs Immat Gran (auto) 0.09 H Absolute Neuts (auto) 10.0 H Absolute Nucleated RBC 0.000 Nucleated RBC % 0.0 Sodium 134 L Potassium 3.8 Chloride 99 Carbon Dioxide 27 Anion Gap 8 BUN 12 Creatinine 0.70 Estim Creat Clear Calc 41 Estimated GFR > 60 Glucose 90 Calcium 9.1 Discharge Plan Discharge Patient Disposition: Home, Self-Care Discharge Instructions: See green instruction sheets Stand Alone Forms: General Discharge Instructions Follow-up/Referrals: Josee Moreno PA [Physician Casework Specialist] - Discharge Medications: New prednisone 5 mg tablet 5 mg PO DAILY 21 Days Qty: 21 0RF aspirin 81 mg tablet,delayed release (DR/EC) 81 mg PO BID 14 Days Qty: 28 0RF oxycodone-acetaminophen 5-325 mg tablet 1 - 2 tablet PO Q4-6H PRN (Reason: pain) 7 Days Qty: 30 0RF meloxicam 15 mg tablet 15 mg PO DAILY Qty: 30 0RF Rx Instructions: Cut in half. Take 1/2 in morning and 1/2 at night. Take with food. Stop if stomach upset. Continued meloxicam 15 mg tablet 15 mg PO DAILY Qty: 90 1RF red yeast rice 600 mg Capsule 600 mg PO DAILY calcium carbonate [Calcium 600] 600 mg calcium (1,500 mg) Tablet 600 mg PO DAILY multivitamin Capsule 1 cap PO DAILY omega-3 fatty acids-fish oil [Fish Oil] 360-1,200 mg Capsule 1 cap PO DAILY biotin 1,000 mcg Tablet,Chewable 1,000 mcg PO DAILY
[2024-03-20 08:19] VITALS: BP 154/59; PULSE 62; RESP 16; TEMP 36.4; O2SAT 98
== END 2024-03-20 10:25 | disposition home or self-care (01) ==
LOC: ANHSURGERY 08:45 → ANH3MEDSUR 10:37
PROVIDERS: Physician Assistant Surgical; PCP Nurse Practitioner Family; Visit Provider Orthopaedic Surgery
PROC: (CPT 27447; principal; 2024-03-19 07:30)
DX: M17.11 Unilateral primary osteoarthritis, right knee (principal); Z79.899 Other long term (current) drug therapy
CPT/HCPCS: 27447; 36415; 73560; 80048; 85025; 86850; 86900; 86901; 97110; 97116; 97161; 97165; 97530; 97535; A9270; C1713; C1776; J0171; J0690; J1100; J1171; J1885; J2003; J2270; J2371; J2405; J2704; J2795; J3010; J7030; J7120; J7512

== ENCOUNTER 2024-07-24 | Day surgery (SDC) | payer MEDICARE, SELFPAY ==
--- NOTE | 2024-07-06 08:29 | PC.NURSE ---
Report to the Outpatient Waiting Room, entrance under the green pavilion located off [facility], at time _10 am on date __07/24/24 . Planned Procedure Time: ___1200 noon .? Time changes happen often and if your time is changed the preop area will call you the afternoon before. - You and your visitor will be asked to self-screen and do not enter if you have any COVID symptoms. Please call surgeon if you need to reschedule. - A mask is optional within the hospital at this time. Patients may have clear liquids (water, carbonated beverages, clear teas, apple juice) until 3 hours prior to surgery ( 9am) with a maximum of 20 ounces. - No food from midnight until time of surgery and no smoking, or chewing tobacco (or any form of nicotine). No chewing gum, candy or mints. - Take only the following medications with a SIP of water on the morning of surgery: none DO NOT STOP ANY OF YOUR OTHER PRESCRIPTION MEDICATIONS PRIOR TO SURGERY EXCEPT THE FOLLOWING Hold all vitamins and supplements for 3 days per anesthesiologist .last dose 07/20/24 Medications to discontinue per physician ___NSAIDS,ASPIRIN 7 DAYS PRE OP .PER DR JONES. MAY TAKE TYLENOL IF NEEDED FOR PAIN Date to take last dose Please no make-up, nail sinhala, hairspray, perfume, deodorant, or body powder the day of surgery.? No jewelry (including any body piercings) or valuables the day of surgery, leave them at home.? Please take a shower or bath the night before, or the morning of, surgery with an antibacterial soap.? Wear comfortable, loose fitting clothing.? Children are encouraged to wear pajamas. - Jewelry must be removed prior to entering the operating room.? Rings and piercings that are not removed may be cut off. - The hospital will not accept responsibility for valuables.? - Please leave all valuables, including medications, at home the day of surgery. If you are going home after surgery, a licensed hazmat tanker driver must drive you home.? - NO public transportation without another adult if you receive anesthesia. - We recommend that an adult stay with you for 24 hours following discharge. - We also recommend that you do not drive, make important decision, drink alcoholic beverages, or take any drugs that were not prescribed by your health care provider for at least 24 hours after your discharge time. Follow any additional instructions given to you from your surgeon. Telephone instructions given to ___patient and asked if any additional questions and then verbalized understanding. Patient advised to call surgeon office or pre surgery nurse liaison [phone] if any additional questions.
[2024-07-06 08:40] VITALS: BMI 23.6
[2024-07-24] VITALS (9 sets, daily range): BP systolic 105–167; BP diastolic 56–84; PULSE 58–74; RESP 10–20; TEMP 36.5–36.6; O2SAT 94–100; BMI 24.2
--- OUTSIDE RECORDS SUMMARY | 2024-07-24 00:06 | XMS_ITS | CONTINUITY OF CARE DOCUMENT ---
Author Name jamal landryjason Address Unknown Organization [facility] Address [address] [place] [address] Phone [phone] Care Team Providers Care Body Builder Apprentice Name Role Phone Mathew Sow MD Unavailable [phone] SAMREEN RODRIGUEZ MD Unavailable [phone] SAMREEN RODRIGUEZ MD Unavailable [phone] INSURANCE PROVIDERS Payer name Policy type / Coverage type [place] red republican ID [facility] [id number] [place] Medicare [id number]
--- OUTSIDE RECORDS SUMMARY | 2024-07-24 00:06 | XMS_ITS | Clinical Summary ---
Author Organization [facility] Address [address] [place] [address] Care Team Providers Care Parole Or Probation Officer Name Role Phone Tom Jason MD Primary Care Provider [phone] Allergies Active Allergy Reactions Criticality Noted Date Comments Iodine Hives Medium 02/20/2022 Medications Biotin 5 MG Cap Take 5 mg by mouth daily. Active CALCIUM-VITAMIN D OR Take 1 tablet by mouth daily. Active Naproxen Sodium (ALEVE OR) Active Red Yeast Rice Extract (RED YEAST RICE OR) Activ e omega-3 fatty acid (FISH OIL) 500 MG capsule Take 1 capsule (500 mg total) by mouth daily. Active Multiple Vitamins-Minera ls (PRESERVISION AREDS OR) Active Active Problems Problem Noted Date Diagnosed Date Lumbar radiculopathy 09/26/2022 Overview (09/26/2022): Added automatically from request for surgery [id number] Family History Medical History Relation Comments Uterine Cancer Mother Relation Status Comments Mother Social History Tobacco Use Types Packs/Day Years Used Date Smoking Tobacco: Never Smokeless Tobacco: Never Alcohol Use Standard Drinks/Week Comments Yes 0 (1 standard drink = 0.6 oz pur e alcohol) social Comments No Sex and Gender Information Value Date Recorded Sex Assigned at Not on file Legal Sex 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 Gender Identity Not on file Sexual Orientation Not on file 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 Not on file Not on file Not on f ile Last Filed Vital Signs Vital Sign Reading Time Taken Comments Blood Pressure 183/85 02/18/2023 9:54 AM CDT Pulse 63 02/18/2023 9:54 AM CDT Temperature 35.5 C (95.9 F) 02/18/2023 9:01 AM CDT Respiratory Rate 20 02/18/2023 9:54 AM CDT Oxygen Saturation 99% 02/18/2023 9:54 AM CDT Inhaled Oxygen Concentration - - Weight 58.5 kg (129 lb) 02/18/2023 9:01 AM CDT Height 156.2 cm (5' 1.5 ) 02/18/2023 9:01 AM CDT Body Mass Index 23.98 02/18/2023 9:01 AM CDT Plan of Treatment Health Maintenance Due Date Last Done Comments DTaP, Tdap and Td Vaccines (1 - Tdap) 10/15/1958 Zoster Vaccines (1 of 2) 10/15/1989 Annual Medicare Wellness Visit 10/15/2004 Dexa Scan (General) 10/15/2004 Pneumococcal Vaccine: 65+ Years (1 of 1 - PCV) 10/15/2004 RSV Immunization or 60+ Years (1 - 1-dose 75+ series) 10/15/2014 COVID-19 Vaccine ( season) 2024 08/22/2021, 03/22/2021, 07/20/2020, Additional history exists Influenza Adult (#1) 2024 02/01/2020, 05/15/2019, 02/18/2018, Additional history exists Meningococcal B Vaccine Aged Out No l onger eligible based on patient's age to complete this topic Meningococcal Vaccine Aged Out No taylor heber eligible based on patient's age to complete this topic RSV Immunizations Under 20 Months Aged Out No longer eligible based on patient's age to complete this topic Insurance MEDICARE [facility] Care Teams Parole Or Probation Officer Relationship Specialty Start Date End Date Tom Jason MD [address] [place] [address] PCP - General FAMILY PRACTICE 02/20/22
--- OUTSIDE RECORDS SUMMARY | 2024-07-24 00:06 | XMS_ITS | Continuity of Care Document ---
Author Organization [facility] Address [address] [place] [address] [address] [place] [address] Phone Care Team Providers Care Auto Carrier Driver Name Role Phone Maria Victoria James Unavailable Unavailable Procedures Procedure Date Office/outpatient Visit, Est Office/outpatient Visit, Est Office/outpatient Visit, Est Eye Exam Established Pt Vision Svcs Frames Purchases BF Polycarb Sphcyl [place] To +/-4d .12-2d Tax - Medical Eye Exam & Treatment Refraction Eye Exam & Treatment Visual Functional Status Assessed Advance Directives Directive Yes / No Effective Date File Name No Information Encounters Encounter Description Practice Location Reason(s) For Visit Diagnoses Date Provider Providers Copied on Encounter Office/[place]pat ient [place], [facility] [place] [address] [place] [address] [address], [place], [place], [id number], [place] tel:[phone] [facility] No Information 3-201 0 Erika Irene. [address] , [address], [place], [address], [place]. tel:[phone] Office/outpat ient Visit, [facility] [place] [address] [place] [address] [address], [place], [place], [id number], [place] tel:[phone] [facility] No Information 5-201 0 Gi Yanes. [address] , [address], [place], [address], [place]. tel:[phone] Office/outpat ient Visit, Est [facility], [address], [place], [place], [id number], [place] tel:[phone] [facility] No Information Apr-0 2-201 0 Fitzgerald OD Jamaal. [address] [facility] [address] , [address], [place], [place], [facility], [place]. tel:[phone] [facility], [address], [place], [place], [id number], [place] tel:[phone] [facility] No Information Apr-0 1-201 0 Fitzgerald OD Jamaal. [address] [facility] [address] , [address], [place], [place], [facility], [place]. tel:[phone] [facility], [address], [place], [place], [id number], [place] tel:[phone] [facility] No Information Oct- 7200 9 [facility] . [address] [facility], [address], [place], [place], [id number], [place]. tel:[phone] Referring Provider: Maria Victoria Maguire, [address], [place], [address]. tel:[phone] g Provider: Sophia Koroma, [address] [place], [address]. tel:[phone] 14[address] [facility] Eye [facility], [address] [place] [address] [address], [place], [place], [id number], [place] tel:[phone] [facility] No Information Oct- 6-200 9 Erika Irene. [address] [facility] [address] , [address], [place], [address], [place]. tel:[phone] [facility], [address], [place], [place], [id number], [place] tel:[phone] [facility] No Information 200 7 Erika Irene. [address] , [address], [place], [address], [place]. tel:[phone] Family History Family Member Type Diagnosis Age At Onset No Information Payers Payer name Insurance type Covered green party ID Authoriza tion(s) Medicare [facility] [id number] Social History Type Description Quantity Date Captured Comments Sex Female Smoking Status No Information Chief Complaint And Reason For Visit No Information Reason For Referral Reason For Referral No Information History Of Present Illness Encounter Date Complaint History Of Prese nt Illness No Information Functional Status Date Functional Assessmen t No Information Instructions Date Instruction Additional Infor mation No Information Assessments Type Assessment Date No Information Patient Care Teams Name Effective Dates (start - stop) Status Members No Information
--- OUTSIDE RECORDS SUMMARY | 2024-07-24 00:06 | XMS_ITS | Clinical Summary ---
Author Organization [facility] [place] [address] Address [address] [place] [address] Care Team Providers Care Arcade Attendant Name Role Phone Tom Jason MD Primary Care Provider Allergies Active Allergy Reactions Criticality Noted Date Comments Iodine And Iodide Containing Products Hives Medium Medications utibe-2i-mfh-ep a-fish oil (OMEGA 3) 350-400 mg capsule take 1 by Oral route every day 0 10/22/2012 Active vit C-vit R-czyzyk-ajfq-l utein (PRESERVISION LUTEIN) 226 mg-200 unit -5 mg-0.8 mg capsule take 1 by Oral route every day 0 10/22/2012 Active multivitamin tablet tablet take 1 tablet by oral route every day with food 0 10/22/2012 Active calcium carb-vit D2-soybean 600-200-25 mg-unit-mg tablet Take 1 tablet by mouth daily. Active biotin 5 mg capsule Take 1 capsule (1 tablet total) by mouth daily Active meloxicam (MOBIC) 15 mg tablet TAKE 1 TABLET BY MOUTH DAILY FOR PAIN 10/17/2023 Active Active Problems Problem Noted Date Diagnosed Date Lumbar radiculopathy 09/26/2022 Overview (12/16/2023): Added automatically from request for surgery [id number] Diastolic dysfunction without heart failure 05/14 CARLOS (obstructive sleep apnea) 04/01/2017 Ventricular premature beats 03/23/2016 Overview (08/18/2016): PVCs (premature ventricular contractions) Palpitations 03/23/2016 Overview (08/18/2016): Palpitations Hyperlipidemia LDL goal <130 03/23/2016 Overview (08/18/2016): Hyperlipidemia LDL goal <130 MVP (mitral valve prolapse) 03/23/2016 Overview (08/18/2016): Mitral valve prolapse Mitral valve disease 02/17/2014 Overview (08/18/2016): Mitral valve disorder Pure hypercholesterolemia 02/17/2014 Overview (08/18/2016): Pure hypercholesterolemia Medical History Medical History Date Comments Hx Other Medical PVCs mitral margot ve prolapse, dyslipidemia; Comments: MAF 02/17/2014 - Social History Tobacco Use Types Packs/Day Years Used Date Smoking Tobacco: Never Smokeless Tobacco: Former Tobacco Cessation:Counseling Given: Not Answered Alcohol Use Standard Drinks/Week Comments Yes 1 (1 standard drink = 0.6 oz pur e alcohol) occassionally Personal Safety Answer Date Recorded Getting School Help Needed Not on file 07/07 Comments Unknown Sex and Gender Information Value Date Recorded Sex Assigned at Not on file 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 Gender Identity Not on file Sexual Orientation Not on file Obstetrics History Last Filed Vital Signs Vital Sign Reading Time Taken Comments Blood Pressure 120/70 12/16/2023 2:14 PM CDT Pulse 78 12/16/2023 2:14 PM CDT Temperature 36.9 C (98.5 F) 12/16/2023 2:14 PM CDT Respiratory Rate 18 12/16/2023 2:14 PM CDT Oxygen Saturation 96% 12/16/2023 2:14 PM CDT Inhaled Oxygen Concentration - - Weight 56.7 kg (125 lb) 12/16/2023 2:14 PM CDT Height 154.9 cm (5' 1 ) 12/16/2023 2:14 PM CDT Body Mass Index 23.62 12/16/2023 2:14 PM CDT Plan of Treatment Health Maintenance Due Date Last Done Comments Depression Screening 1940 Fall Risk Assessment 1940 Osteoporosis Screening-Bone Density Scan 1940 DTaP/Tdap/Td Vaccine (1 - Tdap) 10/15/1950 Hepatitis B Screening 10/15/1957 Pneumococcal vaccine 65+ (1 of 1 - PCV) 10/15/1989 Zoster Vaccine (1 of 2) 10/15/1989 Well Visit 65+ 10/15/2004 Influenza Vaccine (#1) 2024 , 05/15/2019, 02/18/2018, Additional history exists Insurance MEDICARE [facility] MEDICARE [facility] Care Teams Arcade Attendant Relationship Specialty Start Date End Date Tom Jason MD PCP - General 08/10/16
--- OUTSIDE RECORDS SUMMARY | 2024-07-24 00:06 | XMS_ITS | Referral Summary ---
Author Organization [facility] [place] [address] Address [address] [place] [address] Care Team Providers Care Sleep Lab Technologist Name Role Phone Tom Jason MD Primary Care Provider [phone] Allergies Active Allergy Reactions Criticality Noted Date Comments Iodine And Iodide Containing Products Hives Medium Medications fdpvl-2k-xxo-ep a-fish oil (OMEGA 3) 350-400 mg capsule take 1 by Oral route every day 0 10/22/2012 Active vit C-vit P-qyxkrn-lulo-l utein (PRESERVISION LUTEIN) 226 mg-200 unit -5 [...] (12/16/2023): Added automatically from request for surgery [id number] Diastolic dysfunction without heart failure 05/14 CARLOS (obstructive sleep apnea) 04/01/2017 Ventricular premature beats 03/23/2016 Overview (08/18/2016): PVCs (premature ventricular contractions) Palpitations 03/23/2016 Overview (08/18/2016): Palpitations Hyperlipidemia LDL goal <130 03/23/2016 Overview (08/18/2016): Hyperlipidemia LDL goal <130 MVP (mitral valve prolapse) 03/23/2016 Overview (08/18/2016): Mitral valve prolapse Mitral valve disease 02/17/2014 Overview (08/18/2016): Mitral valve disorder Pure hypercholesterolemia 02/17/2014 Overview (08/18/2016): Pure hypercholesterolemia Social History Tobacco Use Types Packs/Day Years [...] on file 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
[2024-07-24] MEDS: KETOROLAC 15 MG/ML VIAL (*BKC) IV PUSH (10:50)
[2024-07-24] MEDS: ACETAMINOPHEN 500 MG TABLET 1000 MG PO (10:50)
--- NOTE | 2024-07-24 11:52 | WPDHPUPDATE1 ---
History and Physical Update Update Date/Time: 07/24/24 11:52 History and Physical has been reviewed, including an updated exam of the patient. There are NO changes in the patient's condition. Risks, benefits, and alternatives have been discussed and questions answered. Patient agrees to proceed with procedure.
--- NOTE | 2024-07-24 12:35 | P.PNAN_ITS ---
Anes - Initial Pre Proc Eval Procedure: Operation Date: 07/24/24 12:00 Proposed Procedures p Right Shoulder Arthroscopic Rotator Cuff Repair, Proceed as Indicated - Magdiel Szymanski MD Date/Time: 07/24/24 12:35 Surgeon: Magdiel Szymanski MD Pre Op Diagnosis: right shoulder rotator cuff tear Patient Data Age: 83 Gender: F Height: 1.56 m Weight: 59.1 kg Last Vital Signs Temp 36.5 C 07/24/24 10:30 Pulse 64 07/24/24 10:30 Resp 14 07/24/24 10:30 BP 167/83 H 07/24/24 10:30 Pulse Ox 98 07/24/24 10:30 O2 Del Method Room Air 07/24/24 10:30 Allergies Allergy/AdvReac Type Severity Reaction Status Date / Time Latex, Natural Rubber Allergy Intermediate Itching Verified 07/15/24 09:12 lidocaine Allergy Intermediate Itching Verified 07/15/24 09:12 iodine Allergy Unknown HIVES Verified 07/15/24 09:12 Home Medications ?Medication ?Instructions ?Recorded ?Confirmed ?Type biotin 1,000 mcg chewable tablet 1,000 mcg PO DAILY 02/19/24 07/24/24 History calcium carbonate (Calcium 600) 600 mg PO DAILY 02/19/24 07/24/24 History multivitamin 1 cap PO DAILY 02/19/24 07/24/24 History omega-3 fatty acids-fish oil 360 1 cap PO DAILY 02/19/24 07/24/24 History mg-1,200 mg capsule (Fish Oil) red yeast rice 600 mg capsule 600 mg PO DAILY 02/19/24 07/24/24 History lisinopril 5 mg tablet 5 mg PO DAILY #90 tabs 04/30/24 07/24/24 Rx vitamins A,C,I-vwbu-vyrnbl 2,148 1 tablet PO DAILY 07/06/24 07/24/24 History mcg-113 mg-45 mg-17.4 mg tablet (PreserVision AREDS) aspirin 81 mg tablet,delayed 81 mg PO BID 14 days #28 tabs 07/24/24 Rx release oxycodone-acetaminophen 5 mg-325 1 - 2 tablet PO Q4-6H PRN pain 7 07/24/24 Rx mg tablet days #30 tabs Patient hx anesthesia problems: none Family hx anesthesia problems: none Results Review: All pre-operative results and documents have been reviewed as part of the pre- operative evaluation. 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 Degenerative arthritis of thumb CMC arthritis, thumb, degenerative Uterine fibroid Osteoarthritis, hand Preventative health care RLQ abdominal mass Mixed hyperlipidemia Family History Family History Mother Family history of malignant neoplasm of uterus Patient's mother is Other Family history of arthritis Social History Social History Smoking status: Never smoker Second hand tobacco smoke exposure: No Alcohol intake: never Substance use: never Substance use type: does not use Do You Feel Safe in your Home?: Yes Lack of Transportation: No Lack of Food: Never True Current Housing: I Have Housing Concerned About Future Housing: No Difficulty Paying Gas/Electric Bills: No Difficulty Paying for Meds: No Currently Unemployed: No Education: High School Diploma/GED Difficulty w/ Childcare or Family Care: No Living arrangements: with family Additional living arrangements comments: Spiritual care concerns: No Anes - Eval Final PreProcedure Day of Procedure 07/24/24 12:35 Patient weight: normal Heart: regular rate and rhythm Lungs: clear to auscultation Airway: Mallampati scale class II Neurological: alert and oriented Last oral intake: >/= 8 hours ASA classification: II Emergent: no Anesthetic plan: proceed Anesthesia type and monitoring: general LMA and standard monitoring Results Review: All pre-operative results and documents have been reviewed as part of the pre- operative evaluation. Informed Consent: The patient's anesthetic plan and its attendant risks and benefits were discussed with the patient/family/POA. Questions were solicited and answers pro vided to the satisfaction of the patient/family/POA.
[2024-07-24] MEDS: ceFAZolin 2 GM/D5W 50 ML 2 GM/50 ML BAG IVPB (13:05)
[2024-07-24] MEDS: EPINEPHrine HCL INJ 1 MG/ML AMPUL IRRIGATION (13:45)
[2024-07-24] MEDS: BUPIVACAINE/EPINEPHRINE 0.5% 50 ML VIAL 30 ML INFILTRATE (13:45)
[2024-07-24] MEDS: LACTATED RINGERS 1,000 ML 30 ML IV CONT ×2 (15:02)
[2024-07-24] MEDS: fentaNYL CITRATE INJ (*CRX) 100 MCG/2 ML VIAL 25 MCG IV PUSH ×8 (15:13→16:00)
--- NOTE | 2024-07-24 15:53 | W.PM.PROC2 ---
Procedure Note - Detailed Date of Procedure 07/24/24 Pre-op Diagnosis Right shoulder rotator cuff tear Post-op Diagnosis Other (1. Rotator cuff tear 2. Subacromial impingement ) Procedure Performed Right shoulder 1. Arthroscopic rotator cuff repair 2. Arthroscopic subacromial decompression Surgeon Magdiel Szymanski MD Personal Computer Specialist Josee Moreno PA-C Anesthesia General Findings Medium sized L shaped supraspinatus cuff tear. Good bone quality. Subacromial impingement treated with acromioplasty. Description of Procedure Preoperative antibiotics were given. The patient was bought brought to the operating room. A general anesthetic was administered. The patient was carefully positioned in the beach chair position. The head and neck were carefully positioned. The non operative extremity was also carefully positioned. The shoulder was prepped and draped in the usual sterile fashion. Examination was performed. Standard posterior and anterior arthroscopic portals were established. Inflow achieved with the arthroscopic pump using saline and epinephrine. The glenohumeral joint was carefully inspected. No significant pathology. Attention was turned to the subacromial space. The lateral acromion was downsloping and the spur was evident. The arthroscopic bur was used to perform an acromioplasty at the anterolateral acromion. A complete bursectomy was performed. There was a moderate full thickness supraspinatus tear. The tear configuration was carefully assessed. It was L shaped and reasonable mobile. The tissue was moderately degenerative. Bone quality was surprisingly good. At this point, 2 tunnels were created at the rotator cuff. Three sutures were passed through each tunnel. All sutures were then passed through the cuff tissue. The rip stop configuration was used with the 2nd and 5th sutures. An additional margin convergence suture was applied which reduced the split portion of the tear very nicely. The sutures were tied arthroscopically. The arthroscopic instruments were removed. The wounds were closed with 3-0 Monocryl subcuticular suture and steri strips. There were no complications. A sling was applied and the patient brought to the recovery room. Physician printing bindery assistant, Josee Moerno PA-C, required for surgery; including patient positioning, draping, arthroscopic camera operation, maintaining instrument position, suture retrieval, wound closure, and dressing and sling placement. Estimated Blood Loss 10 Pathology None sent Complications No immediate complications Condition Stable Disposition PACU [facility] Billing Surgery - Charge Forward: Surgery Billing
[2024-07-24] MEDS: oxyCODONE HCL (*CRX) 5 MG TAB IR PO (16:48)
[2024-07-24] MEDS: ONDANSETRON INJ 4 MG/2 ML VIAL IV PUSH ×2 (17:28→17:46)
== END 2024-07-24 17:53 | disposition home or self-care (01) ==
PROVIDERS: PCP Nurse Practitioner Family; Visit Provider Orthopaedic Surgery
PROC: (CPT 29805; principal; 2024-07-24 12:00)
DX: M75.121 Complete rotator cuff tear or rupture of right shoulder, not specified as traumatic (principal); M75.41 Impingement syndrome of right shoulder
CPT/HCPCS: 29827; 29826; A4565; A9270; J0171; J0461; J0690; J1885; J2405; J2704; J3010; J7120

== ENCOUNTER 2024-11-09 10:01 | Outpatient (CLI) | payer MEDICARE, SELFPAY ==
[2024-11-09 12:14] LABS: Hematocrit 38.7 % (37.0-47.0); Hemoglobin 12.4 g/dL (12.0-15.0); Mean Corpuscular Hemoglobin 29.1 pg (26-34); Mean Corpuscular Volume 90.8 fl (80-100); Mean Platelet Volume 10.5 fl (7.4-10.4); Platelet Count Result 281 k/mm3 (150-375); Red Blood Count 4.26 M/mm3 (4.2-5.4); Red Cell Distribution Width 13.6 % (11.5-14.5); White Blood Count 5.3 K/mm3 (4.5-10.0)
[2024-11-09 12:30] LABS: Alanine Aminotransferase 15 U/L (6-35); Albumin Level 3.9 g/dL (3.5-5.1); Alkaline Phosphatase 68 U/L (38-126); Anion Gap 7 mmol/L (4-12); Aspartate Amino Transferase 34 U/L (14-36); Bilirubin,Total 0.2 mg/dL (0.2-1.3); Blood Urea Nitrogen 14 mg/dL (7-17); Calcium 9.6 mg/dL (8.4-10.2); Carbon Dioxide 28 mmol/L (22-30); Chloride 102 mmol/L (98-107); Cholesterol 238 mg/dL (0-200); Estimated Glomerular Filt Rate > 60; Glucose 85 mg/dL (65-110); HDL Direct 60 mg/dL; Potassium 3.8 mmol/L (3.4-5.0); Sodium 137 mmol/L (137-145); Total Protein 6.9 g/dL (6.3-8.2); Triglycerides 94 mg/dL (<150)
[2024-11-09 12:42] LABS: LDL Cholesterol Direct 116 mg/dL
[2024-11-09 15:21] LABS: Vitamin D 25 Hydroxy 35.7 ng/mL
== END 2024-11-09 10:02 | disposition home or self-care (01) ==
LOC: ANHGOSHLAB 10:02
PROVIDERS: PCP Nurse Practitioner Family; Visit Provider Nurse Practitioner Family
DX: E78.2 Mixed hyperlipidemia (principal); I10 Essential (primary) hypertension; E55.9 Vitamin D deficiency, unspecified
CPT/HCPCS: 36415; 80053; 80061; 82306; 84443; 85027

== ENCOUNTER 2025-04-12 10:29 | Outpatient (CLI) | payer MEDICARE, SELFPAY ==
--- NOTE | ~2025-04-12 | XR_ITS ---
EXAMINATION: XR hip RT 2V w AP pelvis, 04/12/2025 10:41 DUST HANDLER HISTORY: inflammatory spondylopathy, lumbar r... COMPARISON: No comparisons available. Findings: No acute fracture or malalignment. Moderate degenerative changes Soft tissues unremarkable. Impression: No acute fracture or malalignment. Reviewed, dictated and finalized at location P. HANDLER Impression: No acute fracture or malalignment.
== END 2025-04-12 10:30 | disposition home or self-care (01) ==
PROVIDERS: PCP Nurse Practitioner Family; Visit Provider Nurse Practitioner Family
DX: M51.361 Other intervertebral disc degeneration, lumbar region with lower extremity pain only (principal); M46.96 Unspecified inflammatory spondylopathy, lumbar region; M25.551 Pain in right hip
CPT/HCPCS: 73502